=== PATIENT | female | born 1990 | race Caucasian/White ===

== ENCOUNTER 2018-12-07 00:37 | Observation (INO) | payer MEDICAID, OTHER ==
[~2018-12-07] VITALS: Ht 154.9 cm; Wt 98.4 kg
[2018-12-07] MEDS ORDERED: PREN1TAB23 PO (03:24)
[2018-12-07] MEDS ORDERED: FERR325T6 PO (03:24)
[2018-12-07] MEDS ORDERED: PREN1TAB78 MT (03:24)
== END 2018-12-07 03:10 | disposition left against medical advice (07) ==
LOC: 8 EST LDRP 00:37
PROVIDERS: ADMIT Specialist; ATTEND Specialist
DX: O46.93 Antepartum hemorrhage, unspecified, third trimester (principal); Z3A.33 33 weeks gestation of pregnancy
CPT/HCPCS: 76805; 76818; 99281; G0378